=== PATIENT | male | born 1955 | race Caucasian/White ===

== ENCOUNTER 2020-11-06 08:01 | Observation (INO) ==
[2020-11-06] MEDS ORDERED: 0.9 % Sodium Chloride 1,000 ML IVC ONE (08:30)
[2020-11-06] MEDS ORDERED: hydrOXYzine pamoate 25 MG CAPSULE PO ONE (08:43)
[2020-11-06 08:55] LABS: Basophils % 0.2 %; Eosinophils % 0.5 %; Immature Granulocytes % 0.2 % (0-4); Lymphocytes # 1.6 K/mcL (0.6-4.6); Lymphocytes % 38.7 %; Mean Corpuscular HGB Conc 33.3 g/dL (31.6-35.5); Mean Corpuscular Hemoglobin 29.1 pg (28.0-33.3); Mean Corpuscular Volume 87.4 fL (83.0-100.0); Mean Platelet Volume 11.3 fL (9.4-12.4); Monocytes # 0.3 K/mcL (0.0-1.3); Monocytes % 7.4 %; Neutrophils # 2.2 K/mcL (1.6-8.9); Platelet Count 174 K/mcL (140-400); Red Blood Count 5.15 M/mcL (4.19-5.50); Red Cell Distribution Width 14.8 % (11.5-14.5); White Blood Count 4.2 K/mcL (4.3-11.1)
[2020-11-06] MEDS ORDERED: Aspirin 81 MG TAB.CHEW PO ONE (08:59)
[2020-11-06 09:00] LABS: INR 1.6; Prothrombin Time 18.7 Seconds (9.4-12.1)
[2020-11-06 09:03] LABS: Activated Partial Thrombo Time 33.8 Seconds (26.0-36.0)
[2020-11-06 09:11] LABS: Troponin I < 0.03 ng/mL (< 0.04)
[2020-11-06 09:12] LABS: Alanine Aminotransferase 20 Units/L (7-52); Albumin 4.1 g/dL (3.5-5.7); Alkaline Phosphatase 74 Units/L (34-104); Aspartate Amino Transferase 15 Units/L (13-39); BUN/Creatinine Ratio 17 (6-26); Bilirubin,Direct 0.1 mg/dL (0.0-0.2); Bilirubin,Indirect 0.7 mg/dL (0.0-1.0); Bilirubin,Total 0.8 mg/dL (0.3-1.0); Blood Urea Nitrogen 18 mg/dL (8-23); Calcium 9.1 mg/dL (8.6-10.3); Carbon Dioxide 24 mEq/L (23-29); Chloride 103 mEq/L (98-107); Globulin 4.2 g/dL (2.4-3.5); Glucose 112 mg/dL (70-105); Osmolality,Calculated 283 (280-300); Potassium 3.9 mEq/L (3.5-5.1); Sodium 135 mEq/L (136-145); Total Protein 8.3 g/dL (6.4-8.9); eGFR For African Americans > 60 (> 60); eGFR For Non-African Americans > 60 (> 60)
[2020-11-06] MEDS ORDERED: ALPRAZolam 0.5 MG TABLET PO PRN (11:49)
[2020-11-06] MEDS ORDERED: ALPRAZolam 1 MG TABLET PO PRN (13:19)
[2020-11-06] MEDS ORDERED: Perflutren Lipid Microsphere 1.3 ML in 0.9 % Sodium Chloride 8.7 ML IVP PRN (16:16)
[2020-11-06] MEDS ORDERED: *HR* Rivaroxaban 10 MG TABLET PO SCH (17:00)
[2020-11-06] MEDS ORDERED: amLODIPine 5 MG TABLET PO SCH (21:00)
[2020-11-07] MEDS ORDERED: *HR* Rivaroxaban 10 MG TABLET PO SCH (06:00)
[2020-11-07] MEDS ORDERED: amLODIPine 5 MG TABLET PO SCH (09:00)
[2020-11-07] MEDS ORDERED: (Ezetimibe [Zetia] 10 MG Tablet) PO SCH (09:00)
[2020-11-07 11:44] VITALS: BP 135/82
== END 2020-11-07 11:56 | disposition home or self-care (01) ==
LOC: INPGRE 08:01 → EMEROOGRE 08:01 → INPGRE 10:25
PROVIDERS: ADMIT Family Medicine; ATTEND Family Medicine